=== PATIENT | female | born 1955 | race African-American/Black ===

== ENCOUNTER 2018-04-09 10:49 | Day surgery (SDC) | payer OTHER ==
[~2018-04-09 10:49] MED LIST: Buffered Lidocaine 0.9% SYRIN* 5 ML/SYR SYRINGE INTRADERM ONE; Dexamethasone IV* 4 MG/ML 1 ML (4 MG) IV SLOW PU ONE; Famotidine IV* 10 MG/ML 2 ML (20 mg) IV ONE
[2018-04-09] MEDS ORDERED: ceFAZolin 2 GM PREMIX in ORs 2 GM/50 ML BAG IVPB ONE (10:57)
[2018-04-09] MEDS ORDERED: Famotidine IV* 10 MG/ML 2 ML (20 mg) ONE (10:57)
[2018-04-09] MEDS ORDERED: Dexamethasone IV* 4 MG/ML 1 ML (4 MG) ONE (10:57)
[2018-04-09] MEDS ORDERED: fentaNYL* 50 MCG/ML 2 ML VIAL (100 MCG VIAL) ONE (11:44)
[2018-04-09] MEDS ORDERED: Midazolam* 1 MG/ML 2 ML VIAL (2 MG) ONE (11:45)
[2018-04-09] MEDS ORDERED: Lidocaine 2% PF * 5 ML VIAL ONE (11:52)
[2018-04-09] MEDS ORDERED: Dexamethasone IV* 4 MG/ML 5 ML VIAL (20 MG) ONE (11:57)
[2018-04-09] MEDS ORDERED: Bupivacaine 0.5% SDV PF* 30ML VIAL ONE (11:58)
[2018-04-09] MEDS ORDERED: Lidocaine 1% INJ* 10 MG/ML 30 ML SDV ONE (11:58)
[2018-04-09] MEDS ORDERED: Propofol* 10 MG/ML 20 ML BTL IV PUSH ONE ×2 (12:43→12:58)
[2018-04-09] MEDS ORDERED: oxyCODONE/Acetamin 5/325 MG* TAB PO PRN (12:45)
[2018-04-09] MEDS ORDERED: fentaNYL* 50 MCG/ML 2 ML VIAL (100 MCG VIAL) IV PRN (12:45)
[2018-04-09] MEDS ORDERED: Ondansetron INJ* 2 MG/ML VIAL IV PRN (12:45)
[2018-04-09] MEDS ORDERED: Acetaminophen TAB* 325 MG PO PRN (12:45)
[2018-04-09] MEDS ORDERED: Ibuprofen TAB* 600 MG PO PRN (12:45)
[2018-04-09] MEDS ORDERED: Naloxone* 0.4 MG/ML 1 ML VIAL IV PRN (12:45)
[2018-04-09] MEDS ORDERED: Ibuprofen TAB* 600 MG ONE (14:19)
[2018-04-09 14:23] VITALS: BP 151/99
--- NOTE | 2018-04-10 09:05 | OP ---
DATE OF OPERATION: 04/09/18 - [facility] DATE OF : 55. SURGEON: Octavio Hughes DPM. ANESTHESIA: MAC with local. PRE-OP DIAGNOSIS: Foreign body, right foot. POST-OP DIAGNOSIS: Foreign body, right foot. OPERATIVE PROCEDURE: Removal of foreign body of right foot. ESTIMATED BLOOD LOSS: Less than 10 cc. IV FLUIDS: LR 1000 cc. DRAINS: None. SPECIMEN: Foreign body approximately 1.5 inch within. Foreign body consistent with a toothpick. DESCRIPTION OF PROCEDURE: The patient was taken to the operating room and was placed in supine position. Time-out was called and OR team agreed. The right foot was then blocked with 9 cc of 1% lidocaine plain locally to where I marked the site on the plantar aspect of the right heel. The foot was then prepped and draped in the sterile manner. The right foot was then exsanguinated with an Esmarch bandage, and the cuff was then inflated to 250 mmHg. Attention was then paid to the plantar aspect of the right heel. I marked prior to taking the patient to the operating room the area of complaint, it is localized plantar calcaneal tubercle where there is a dark spot, where the puncture point was. I then made a modified L incision right over the spot, this allowed me to create a flap where I was able to retract a significant amount of skin and exposed the underlying subcutaneous tissue. I went ahead and examined the subcutaneous tissue, as on ultrasound a foreign body lies about 1.5 cm from the skin. Then, according to the report, it is about 0.7 mm in size. I went ahead and looked for it. Found it not to be at the level of the subcutaneous tissue, I went ahead and explored further past the deep fascia. I did incise the deep fascia, but however on the medial aspect, I felt a greyish area of the subcutaneous fat. I went ahead and clipped that, and pulled out what appears to be a toothpick. The toothpick is approximately thickness and slightly larger than an 18-gauge needle. It is also about 1.5 cm long. I went ahead and put that in formalin jar and sent it to Pathology for evaluation. Please note that I removed the entire thing. I could see the tip of the toothpick. I went ahead and irrigated the site and closed it in a layered anatomical fashion. The patient tolerated the procedure and anesthesia well. I did inject the site with 5 cc of 0.5% lidocaine plain. I deflated the cuff, placed the foot into a dry sterile dressing. The patient was taken to recovery in stable condition and was later discharged in stable condition as well. [id number]/CPS #: [id number] MTDD
== END 2018-04-09 14:26 | disposition home or self-care (01) ==
LOC: OR 10:49
PROVIDERS: ATTEND Podiatrist
DX: S91.341A Puncture wound with foreign body, right foot, initial encounter (principal); W45.8XXA Other foreign body or object entering through skin, initial encounter; Y92.9 Unspecified place or not applicable; Y99.9 Unspecified external cause status
CPT/HCPCS: 88300; A9270-GY; J0690; J1100; J2250; J2704; J3010